=== PATIENT | female | born 1980 | race Two or more races ===

== ENCOUNTER 2017-06-07 20:53 | Emergency (ER) | payer OTHER ==
[~2017-06-07] VITALS: Ht 162.6 cm; Wt 54.4 kg
[~2017-06-07 20:53] MED LIST: ALBUTEROL17 GM INH; BACLOFEN10 MG PO; BACLOFEN5 GM PO; BENADRYL25 M1 PO; BENTYL10 MG PO; BENTYL20 MG PO; CITALOPRAM HBR40 MG PO; FLEXERIL10 MG PO; HYDROCODON-ACE1 EAC9 PO; IMITREX50 MG PO; KLONOPIN0.5 MG PO; LAC-HYDRIN 5113 GM TP; MEDROL DOSEPAK4 MG PO; MOBIC; NAPROXEN PO; OMEPRAZOLE40 MG PO; PEPCID40 MG PO; PHENERGAN PO; PHENERGAN SUPP25 MG PR; PHENERGAN12.5 MG PO; PHENERGAN25 M1 PO; PHENERGAN25 MG PO; PRILOSEC20 M1 PO; REQUIP1 MG PO; SEROQUEL XR300 M1 PO; SIMVASTATIN40 MG PO; TOPIRAGEN100 MG PO; ULTRAM PO; ZANAFLEX4 M1; ZANAFLEX4 M1 PO
[2017-06-07 23:41] LABS: HEMATOCRIT 43.4 % (35.0-45.0); HEMOGLOBIN 14.5 gm/dL (12.0-16.0); LYMPHOCYTE# 0.3 X10e3 (1.0-3.5); LYMPHOCYTE% 5.3 % (17.0-45.0); MEAN CELL VOLUME 89.9 FL (83-96); MEAN CORPUSCULAR HEMOGLOBIN 30.1 PG (28-34); MEAN CORPUSCULAR HGB CONC 33.5 g/dL (30-36); MEAN PLATELET VOLUME 9.8 FL (6.5-11.5); MONOCYTE# 0.1 X10e3 (0-1.0); MONOCYTE% 1.1 % (3.0-12.0); NEUTROPHIL# 4.9 X10e3 (1.5-7.1); NEUTROPHIL% 93.6 % (40-75); PLATELET COUNT 235 X10e3 (140-420); RED BLOOD COUNT 4.83 X10e (3.90-5.30); RED CELL DISTRIBUTION WIDTH 13.6 % (11.0-15.5); WHITE BLOOD COUNT 5.2 X10e3 (4.0-10.5)
[2017-06-07 23:44] LABS: DIFF IND NO
[2017-06-08 00:04] LABS: ALBUMIN SERUM 4.9 g/dL (3.5-5.0); BILIRUBIN, DIRECT 0.1 mg/dL (0.0-0.2); BILIRUBIN,INDIRECT 0.3 mg/dL (0.0-0.9); BILIRUBIN,TOTAL 0.4 mg/dL (0.2-2.0); BUN/CREATININE RATIO 18.88; CALCIUM SERUM 10.3 mg/dL (8.4-10.2); CREATININE SERUM 0.9 mg/dL (0.6-1.4); GLOM FILT RATE Estimated 81.2 mL/min (>60); POTASSIUM 3.8 mmol/L (3.5-5.1); PROTEIN TOTAL SERUM 8.7 g/dL (6.0-8.3)
[2017-06-08 00:49] LABS: URINE SOURCE CLEAN CATCH
[2017-06-08 01:05] LABS: URINE APPEARANCE CLEAR; URINE BILIRUBIN NEG (NEG); URINE BLOOD NEG (NEG); URINE COLOR YELLOW; URINE GLUCOSE 100 MG/DL (NEG); URINE KETONE NEG (NEG); URINE LEUKOCYTE ESTERASE NEG (NEG); URINE NITRATE NEG (NEG); URINE PROTEIN 1+ (NEG); URINE SPECIFIC GRAVITY 1.075 (1.003-1.035)
[2017-06-08 01:08] LABS: URBCS1 AUWI 0-2 /[HPF] (0-2); URINE BACTERIA AUWI NEG (NEGATIVE); URINE SQUAMOUS EPITHELIAL CELL NONE SEEN /[HPF]; UWBCS1 AUWI 0-2 (0-5)
[2017-06-08 01:20] LABS: CULTURE INDICATED? NO
== END 2017-06-08 00:33 | disposition home or self-care (01) ==
LOC: CED 20:53
DX: R10.9 Unspecified abdominal pain (principal); R11.0 Nausea
CPT/HCPCS: 36415; 80048; 80076; 81003; 83690; 85025; 99284